=== PATIENT | female | born 1985 | race American Indian/Alaskan Native ===

== ENCOUNTER 2016-07-19 02:31 | Emergency (ER) | payer BC ==
[2016-07-19] MEDS ORDERED: PEPCID PO ONE (02:59)
[2016-07-19] MEDS ORDERED: DECADRON IM ONE (02:59)
[2016-07-19] MEDS ORDERED: BENADRYL PO ONE (03:00)
[2016-07-19] MEDS ORDERED: MOTRIN PO ONE (04:53)
[2016-07-19] MEDS ORDERED: BICILLIN L-A IM ONE (04:53)
--- NOTE | 2016-07-19 05:44 | Emergency Department Report ---
ED ENT HPI - General Chief complaint: Sore Throat Stated complaint: THROAT PAIN/SWELLING Time Seen by Provider: 07/19/16 04:31 Source: patient Mode of arrival: Ambulatory Limitations: No Limitations - History of Present Illness Initial comments: 31-year-old female past medical history none presents with complaint of sore throat since yesterday. Patient states that swallowing is somewhat difficult complains of minor body aches. Able to swallow liquids but swallowing solids is very uncomfortable. Speaking in full sentences no audible wheezing or stridor. MD complaint: sore throat Onset/Timin -: days(s) Location: throat Severity: moderate Quality: aching Worsens with: swallowing Associated Symptoms: pain with swallowing, sore throat - Related Data Previous Rx's Medication Instructions Recorded Last Taken Type Benzocaine/Menthol [Cepacol Sore 1 each MM Q4H PRN #18 lozenge 07/19/16 Unknown Rx Throat Lozenge] Famotidine [Pepcid] 20 mg PO BID #30 tablet 07/19/16 Unknown Rx Ibuprofen [Motrin] 600 mg PO Q8H PRN #30 tablet 07/19/16 Unknown Rx predniSONE [Deltasone] 40 mg PO QDAY #10 tablet 07/19/16 Unknown Rx Allergies Allergy/AdvReac Type Severity Reaction Status Date / Time No Known Allergies Allergy Unverified 07/19/16 02:57 ED Dental HPI - General Chief complaint: Sore Throat Stated complaint: THROAT PAIN/SWELLING Time Seen by Provider: 07/19/16 04:31 Source: patient Mode of arrival: Ambulatory Limitations: No Limitations - Related Data Previous Rx's Medication Instructions Recorded Last Taken Type Benzocaine/Menthol [Cepacol Sore 1 each MM Q4H PRN #18 lozenge 07/19/16 Unknown Rx Throat Lozenge] Famotidine [Pepcid] 20 mg PO BID #30 tablet 07/19/16 Unknown Rx Ibuprofen [Motrin] 600 mg PO Q8H PRN #30 tablet 07/19/16 Unknown Rx predniSONE [Deltasone] 40 mg PO QDAY #10 tablet 07/19/16 Unknown Rx Allergies Allergy/AdvReac Type Severity Reaction Status Date / Time No Known Allergies Allergy Unverified 07/19/16 02:57 ED Review of Systems ROS: Stated complaint: THROAT PAIN/SWELLING Other details as noted in HPI Constitutional: denies: chills, fever Eyes: denies: eye pain, eye discharge, vision change ENT: throat pain. denies: ear pain Respiratory: denies: cough, shortness of breath, wheezing Cardiovascular: denies: chest pain, palpitations Endocrine: no symptoms reported Gastrointestinal: denies: abdominal pain, nausea, diarrhea Genitourinary: denies: urgency, dysuria, discharge Musculoskeletal: denies: back pain, joint swelling, arthralgia Skin: denies: rash, lesions Neurological: denies: headache, weakness, paresthesias Psychiatric: denies: anxiety, depression Hematological/Lymphatic: denies: easy bleeding, easy bruising ED Past Medical Hx - Past Medical History Previous Medical History?: No - Surgical History Past Surgical History?: No - Social History Smoking Status: Never Smoker Substance Use Type: None - Medications Home Medications: Home Medications Medication Instructions Recorded Confirmed Last Taken Type Benzocaine/Menthol [Cepacol Sore 1 each MM Q4H PRN #18 lozenge 07/19/16 Unknown Rx Throat Lozenge] Famotidine [Pepcid] 20 mg PO BID #30 tablet 07/19/16 Unknown Rx Ibuprofen [Motrin] 600 mg PO Q8H PRN #30 tablet 07/19/16 Unknown Rx predniSONE [Deltasone] 40 mg PO QDAY #10 tablet 07/19/16 Unknown Rx ED Physical Exam - General Limitations: No Limitations General appearance: alert, in no apparent distress - Head Head exam: Present: atraumatic, normocephalic - Eye Eye exam: Present: normal appearance, PERRL, EOMI - ENT ENT exam: Present: mucous membranes moist - Expanded ENT Exam Expanded Teeth exam: Present: normal inspection Throat exam: Positive: tonsillar erythema (right sided tonsillar erythema, minor exudates. 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 Absent: respiratory distress - Cardiovascular Cardiovascular Exam: Present: regular rate, normal rhythm. Absent: systolic murmur, diastolic murmur, rubs, gallop - GI/Abdominal GI/Abdominal exam: Present: soft, normal bowel sounds - Extremities Exam Extremities exam: Present: normal inspection - Back Exam Back exam: Present: normal inspection - Neurological Exam Neurological exam: Present: alert, oriented X3 - Psychiatric Psychiatric exam: Present: normal affect, normal mood - Skin Skin exam: Present: warm, dry, intact, normal color. Absent: rash ED Course Vital Signs 07/19/16 02:45 Temperature 98 F Pulse Rate 88 Respiratory 18 Rate Blood Pressure 163/120 O2 Sat by Pulse 100 Oximetry ED Medical Decision Making - Medical Decision Making A/P: Tonsillitis 1- treated empirically, strep culture sent. 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 ED Disposition Clinical Impression: Tonsillitis Disposition: DISCHARGED TO HOME OR SELFCARE Is pt being admited?: No Does the pt Need Aspirin: No Condition: Stable Instructions: Tonsillitis (ED) Prescriptions: Benzocaine/Menthol [Cepacol Sore Throat Lozenge] 1 each MM Q4H PRN #18 lozenge PRN Reason: Sore Throat Famotidine [Pepcid] 20 mg PO BID #30 tablet Ibuprofen [Motrin] 600 mg PO Q8H PRN #30 tablet PRN Reason: Pain predniSONE [Deltasone] 40 mg PO QDAY #10 tablet Referrals: SHAMA CHESTER MD [Staff Physician] - 3-5 Days Forms: Accompanied Note, Work/School Release Form(ED) Time of Disposition: 05:50
[2016-07-19 06:26] VITALS: BP 148/102
== END 2016-07-19 05:50 | disposition home or self-care (01) ==
LOC: ED 02:31
DX: J03.90 Acute tonsillitis, unspecified (principal)
CPT/HCPCS: 87430; 96372; 99282; J0561; J1100

== ENCOUNTER 2017-11-16 19:26 | Emergency (ER) | payer BC, OTHER ==
[2017-11-16 20:28] LABS: Basophils # (Auto) 0.1 K/mm3 (0.0-0.1); Eosinophils # (Auto) 0.1 K/mm3 (0.0-0.4); Eosinophils % (Auto) 0.8 % (0.0-4.3); Lymphocytes # (Auto) 3.4 K/mm3 (1.2-5.4); Mean Corpuscular HGB Conc 29 % (30-34); Monocytes # (Auto) 0.8 K/mm3 (0.0-0.8); Monocytes % (Auto) 8.1 % (0.0-7.3); Platelet Count 472 K/mm3 (140-440); Red Blood Count 4.33 M/mm3 (3.65-5.03)
[2017-11-16 20:38] LABS: Hematocrit 26.5 % (30.3-42.9); Hemoglobin 7.7 gm/dl (10.1-14.3); Mean Corpuscular Hemoglobin 18 pg (28-32); Mean Corpuscular Volume 61 fl (79-97); Red Cell Distribution Width 21.5 % (13.2-15.2)
[2017-11-16] MEDS ORDERED: TYLENOL PO ONE (22:00)
[2017-11-16] MEDS ORDERED: TYLENOL ONE (22:10)
[2017-11-17 02:27] VITALS: BP 131/83
--- NOTE | 2017-11-17 05:19 | Emergency Department Report ---
HPI - General Chief Complaint: Vaginal Bleeding Time Seen by Provider: 11/16/17 22:31 - HPI HPI: The patient is a 32-year-old female who presents for evaluation of vaginal bleeding and lightheadedness. The patient reports 1 day of constant severe vaginal bleeding, associated with mild generalized weakness and lightheadedness , exacerbated with head position changes to improvement with lying down. The patient denies fever, headache, neck pain, paresthesias, focal motor weakness, blurry vision, ear pain, tinnitus, chest pain, hemoptysis, dyspnea, abdominal pain, confusion or altered mental status, or recent URI or diarrhea. ED Past Medical Hx - Past Medical History Previous Medical History?: Yes - Surgical History Past Surgical History?: No - Social History Smoking Status: Never Smoker Substance Use Type: None - Medications Home Medications: Home Medications Medication Instructions Recorded Confirmed Last Taken Type Benzocaine/Menthol [Cepacol Sore 1 each MM Q4H PRN #18 lozenge 07/19/16 Unknown Rx Throat Lozenge] Famotidine [Pepcid] 20 mg PO BID #30 tablet 07/19/16 Unknown Rx Ibuprofen [Motrin] 600 mg PO Q8H PRN #30 tablet 07/19/16 Unknown Rx predniSONE [Deltasone] 40 mg PO QDAY #10 tablet 07/19/16 Unknown Rx Ferrous Sulfate, Dried [Slow 160 mg PO QDAY #30 tablet.er 11/17/17 Unknown Rx Release Iron 160 Mg tab] medroxyPROGESTERone ACETATE 5 mg PO QDAY #5 tablet 11/17/17 Unknown Rx [Provera] ED Review of Systems ROS: Stated complaint: HEAVY VAGINAL BLEEDING Other details as noted in HPI Constitutional: denies: fever ENT: denies: throat or neck pain Respiratory: denies: cough, shortness of breath Cardiovascular: denies: chest pain Endocrine: denies unexplained weight loss or gain Gastrointestinal: denies: abdominal pain, nausea Genitourinary: reports vaginal bleeding denies: dysuria Musculoskeletal: denies: leg swelling Skin: denies: rash Neurological: denies: headache Hematological/Lymphatic: denies: easy bleeding or easy bruising Psych: denies sadness or hopelessness Physical Exam - Physical Exam Vital Signs: Vital Signs 11/16/17 11/16/17 11/16/17 19:35 19:37 22:15 Temperature 98.3 F 98.3 F Pulse Rate 89 89 Respiratory 18 18 18 Rate Blood Pressure 144/103 114/103 Blood Pressure [Left] O2 Sat by Pulse 100 100 Oximetry 11/16/17 08 23:15 02:27 Temperature 97.6 F Pulse Rate 80 Respiratory 18 17 Rate Blood Pressure Blood Pressure 131/83 [Left] O2 Sat by Pulse 99 Oximetry Physical Exam: General: well-nourished, well-developed, no acute distress Head: Normocephalic, atraumatic Eyes: normal sclera ENT: Mucous membranes are pale and dry Neck: No neck stiffness, no cervical adenopathy Respiratory: Breath sounds equal bilaterally, no wheezing, rales, or rhonchi Cardio: S1 and S2 present, no murmurs, rubs, gallops, capillary refill is delayed Abdomen: Normoactive bowel sounds, soft abdomen, no rigidity, no guarding or rebound tenderness Chest WALL/Back: No tenderness to palpation of the chest wall, no CVA tenderness with percussion Musc: No pitting edema Skin: No rash Neuro: no facial drooping, normal speech Psych: Normal affect ED Course Vital Signs 11/16/17 11/16/17 11/16/17 19:35 19:37 22:15 Temperature 98.3 F 98.3 F Pulse Rate 89 89 Respiratory 18 18 18 Rate Blood Pressure 144/103 114/103 Blood Pressure [Left] O2 Sat by Pulse 100 100 Oximetry 11/16/17 11/17/17 23:15 02:27 Temperature 97.6 F Pulse Rate 80 Respiratory 18 17 Rate Blood Pressure Blood Pressure 131/83 [Left] O2 Sat by Pulse 99 Oximetry ED Medical Decision Making - Lab Data Result diagrams: 11/16/17 20:10 - Medical Decision Making The patient was seen and examined by myself. The patient is placed on a nuclear monitoring technician and continuous pulse ox. On initial evaluation, the patient was found to be in no distress. Evaluation orders were placed. Lab results reveal low levels of RBC, hemoglobin, hematocrit, although not requiring transfusion, and normal levels of platelets with negative test. The patient was reevaluated and reported that their symptoms were improved. As the patient has non-concerning levels of RBC, hemoglobin, hematocrit, with normal vital signs, and there is no evidence of severe bleeding requiring transfusion or other emergent management at this time, the patient is stable for discharge with outpatient follow-up. The patient is given follow-up and return instructions. The patient expressed understanding and agreed with the plan. The patient is discharged in stable condition. Critical care attestation.: If time is entered above; I have spent that time in minutes in the direct care of this critically ill patient, excluding procedure time. ED Disposition Clinical Impression: Vaginal bleeding, Anemia due to blood loss, Weakness Disposition: - TO HOME OR SELFCARE Is pt being admited?: No Does the pt Need Aspirin: No Condition: Stable Instructions: Dysfunctional Uterine Bleeding (ED), Anemia (ED) Prescriptions: Ferrous Sulfate, Dried [Slow Release Iron 160 Mg tab] 160 mg PO QDAY #30 tablet.er medroxyPROGESTERone ACETATE [Provera] 5 mg PO QDAY #5 tablet Referrals: [facility] [Provider Group] - 3-5 Days PRIMARY CARE, [Primary Care Provider] - 3-5 Days Time of Disposition: 05:19
== END 2017-11-17 02:47 | disposition home or self-care (01) ==
LOC: ED 19:26
DX: N93.9 Abnormal uterine and vaginal bleeding, unspecified (principal); D50.0 Iron deficiency anemia secondary to blood loss (chronic); R53.1 Weakness; R42 Dizziness and giddiness
CPT/HCPCS: 36415; 84703; 85025; 86850; 86900; 86901; 99284

== ENCOUNTER 2017-12-05 21:30 | Emergency (ER) | payer OTHER ==
[2017-12-06] MEDS ORDERED: MOTRIN ONE (05:47)
[2017-12-06] MEDS ORDERED: ZOFRAN ODT PO ONE (06:01)
[2017-12-06] MEDS ORDERED: MOTRIN PO ONE (06:01)
--- NOTE | 2017-12-06 06:06 | Emergency Department Report ---
Minor Respiratory - HPI Chief Complaint: Upper Respiratory Infection Stated Complaint: FEVER,WEAK,LIGHTHEADED Time Seen by Provider: 12/06/17 05:59 Minor Respiratory: Yes Able to Tolerate Fluids, Yes Cough, Yes Fever ( subjective fever of 102.), No Rhinorrhea, No Sore Throat, No Ear Pain, No Sick Contacts, No Hemoptysis, No Chest Pain, No Shortness of Breath Other History: 32-year-old female comes to the emergency room complaining of body aches, chills cough for 5 hours. Patient admits to nausea denies any wheezing denies any vomiting intermittent sneezing denies any rhinorrhea denies any runny eyes denies any sore throat denies any ear pain denies any nasal congestion. Patient states she has leg pain in both legs and took 2 ibuprofen prior to arrival. She has no past medical history currently takes no medications on a daily basis and has no known drug allergies. ED Review of Systems ROS: Stated complaint: FEVER,WEAK,LIGHTHEADED Other details as noted in HPI Constitutional: fever, weakness ENT: denies: ear pain, throat pain, congestion Respiratory: cough. denies: shortness of breath, SOB with exertion, wheezing Cardiovascular: denies: chest pain Gastrointestinal: nausea. denies: abdominal pain, vomiting, diarrhea Genitourinary: denies: urgency, dysuria, discharge Musculoskeletal: denies: back pain, joint swelling, arthralgia Neurological: weakness ED Past Medical Hx - Past Medical History Previous Medical History?: No - Surgical History Past Surgical History?: No - Social History Smoking Status: Never Smoker Substance Use Type: None - Medications Home Medications: Home Medications Medication Instructions Recorded Confirmed Last Taken Type Benzocaine/Menthol [Cepacol Sore 1 each MM Q4H PRN #18 lozenge 07/19/16 Unknown Rx Throat Lozenge] Famotidine [Pepcid] 20 mg PO BID #30 tablet 07/19/16 Unknown Rx Ibuprofen [Motrin] 600 mg PO Q8H PRN #30 tablet 07/19/16 Unknown Rx predniSONE [Deltasone] 40 mg PO QDAY #10 tablet 07/19/16 Unknown Rx Ferrous Sulfate, Dried [Slow 160 mg PO QDAY #30 tablet.er 11/17/17 Unknown Rx Release Iron 160 Mg tab] medroxyPROGESTERone ACETATE 5 mg PO QDAY #5 tablet 11/17/17 Unknown Rx [Provera] Ibuprofen [Motrin 600 MG tab] 600 mg PO ONCE #30 tablet 12/06/17 Unknown Rx Nitrofurantoin Monohyd/M-Cryst 100 mg PO Q12H 7 Days #14 capsule 12/06/17 Unknown Rx [Macrobid 100 mg Capsule] Minor Respiratory Exam - Exam General: Vital signs noted. No distress. Alert and acting appropriately. HEENT: Yes Moist Mucous Membranes, No Pharyngeal Erythema, No Pharyngeal Exudates, No Rhinorrhea, No Conjuctival Injection, No Frontal Tenderness, No Maxillary Tenderness Ear: Neither TM Bulge, Neither TM Erythema, Neither EAC Pain, Neither EAC Discharge Neck: Yes Supple, No Adenopathy Lungs: Yes Good Air Exchange, No Wheezes, No Ronchi, No Stridor, No Cough, No Labored Respirations, No Retractions, No Use of Accessory Muscles, No Other Abnormal Lung Sounds Heart: Yes Regular, No Murmur Abdomen: Yes Normal Bowel Sounds, No Tenderness, No Peritoneal Signs Skin: No Rash, No Edema Neurologic: Alert and oriented, no deficits. Musculoskeletal: Unremarkable. ED Course Vital Signs 12/05/17 12/05/17 22:35 23:43 Temperature 99.2 F 99.4 F Pulse Rate 98 H 96 H Respiratory 18 16 Rate Blood Pressure 153/95 153/95 O2 Sat by Pulse 100 100 Oximetry ED Medical Decision Making - Radiology Data Radiology results: report reviewed FINAL REPORT EXAM: XR CHEST ROUTINE 2V HISTORY: cough with subjective fever TECHNIQUE: PA and lateral views of the chest were submitted. FINDINGS: The heart size and mediastinum appear normal. The lungs are clear. Pleural fluid is not seen. The bones soft tissues appear well maintained. IMPRESSION: No acute cardiopulmonary process. Transcribed By: RB Dictated By: SHIVA JOHNSON MD Electronically Authenticated By: SHIVA JOHNSON MD Signed Date/Time: 12/06/17624 DD/ 4 TD/TT: 12/06/17624 - Medical Decision Making Patient has been evaluated by this provider fast track. Patient's been given ibuprofen for pain management and Zofran for nausea. Urinalysis urine ordered chest x-ray has been ordered. Patient urinalysis came back positive for urinary tract infection. Discharge patient on Macrobid and ibuprofen discussed patient increase her fluid intake by 2 L a day. Critical care attestation.: If time is entered above; I have spent that time in minutes in the direct care of this critically ill patient, excluding procedure time. ED Disposition Clinical Impression: UTI (urinary tract infection) Qualifiers: Urinary tract infection type: site unspecified Hematuria presence: without hematuria Qualified Code(s): N39.0 - Urinary tract infection, site not specified Disposition: TO HOME OR SELFCARE Is pt being admited?: No Does the pt Need Aspirin: No Condition: Stable Instructions: Urinary Tract Infection in Women (ED) Additional Instructions: Please take medication as prescribed. Pain medication as needed. Follow up with her primary care provider symptoms persist or gets worse. Prescriptions: Ibuprofen [Motrin 600 MG tab] 600 mg PO ONCE #30 tablet Nitrofurantoin Monohyd/M-Cryst [Macrobid 100 mg Capsule] 100 mg PO Q12H 7 Days # 14 capsule Referrals: PRIMARY CARE, [Primary Care Provider] - 3-5 Days Forms: Work/School Release Form(ED)
--- NOTE | 2017-12-06 06:26 | XRay Report ---
FINAL REPORT EXAM: XR CHEST ROUTINE 2V HISTORY: cough with subjective fever TECHNIQUE: PA and lateral views of the chest were submitted. FINDINGS: The heart size and mediastinum appear normal. The lungs are clear. Pleural fluid is not seen. The bones soft tissues appear well maintained. IMPRESSION: No acute cardiopulmonary process.
[2017-12-06 06:35] LABS: Bilirubin,Urine NEG (Negative); Blood,Urine NEG (Negative); Color,Urine Yellow (Yellow); Urobilinogen,Urine < 2.0 mg/dL (<2.0)
[2017-12-06 06:36] LABS: Mucus,Urine 3+ /HPF
[2017-12-06 07:25] VITALS: BP 140/93
== END 2017-12-06 07:24 | disposition home or self-care (01) ==
LOC: ED 21:30
DX: N39.0 Urinary tract infection, site not specified (principal)
CPT/HCPCS: 36415; 71046; 81001; 84702; Q0162